=== PATIENT | female | born 1935 | race Caucasian/White ===

== ENCOUNTER 2017-02-06 15:19 | Observation (INO) | payer MEDICARE, OTHER ==
[2017-02-06] MEDS ORDERED: MORPHINE SULFATE 2 MG/ML DISP.SYRIN IV ONE (15:45)
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
[2017-02-06] MEDS ORDERED: MORPHINE SULFATE 2 MG/ML DISP.SYRIN ONE (15:48)
[2017-02-06] MEDS ORDERED: ACETAMINOPHEN 500 MG TABLET PO PRN (18:04)
[2017-02-06] MEDS ORDERED: ONDANSETRON HCL/PF 2 MG/ML VIAL IV PRN (18:04)
[2017-02-06] MEDS ORDERED: MORPHINE SULFATE 2 MG/ML DISP.SYRIN IV PRN (19:09)
[2017-02-06] MEDS ORDERED: ACETAMINOPHEN 325 MG TABLET PO PRN (19:15)
[2017-02-06] MEDS: oxyCODONE HCL/ACETAMINOPHEN 1 TAB TABLET PO PRN (19:16)
[2017-02-06 20:49] LABS: Hematocrit 34.1 % (37.0-47.0); Hemoglobin 11.4 gm/dL (12.5-16.0); Mean Cell Volume 90.9 fl (78-100); Mean Corpuscular Hemoglobin 30.4 pg (27-31); Mean Corpuscular Hgb Conc 33.4 g/dl (32-36); Mean Platelet Volume 10.4 fl (6.0-9.5); Neutrophil # 7.9 K/mm3 (1.3-6.0); Neutrophil % 82.3 % (42-75.0); Platelet Count 174 K/mm3 (150-450); Red Blood Count 3.75 M/mm3 (4.2-5.4); Red Cell Distribution Width 11.9 % (11.5-14.0); White Blood Count 9.6 K/mm3 (4.0-10.5)
[2017-02-06 21:07] LABS: Anion Gap 11.8 mmol/L (6.8-13.8); BUN/Creatinine Ratio 20.7 (9.0-21.6); Blood Urea Nitrogen 19 mg/dL (3-23); Calcium * 9.1 mg/dL (7.9-10.9); Carbon Dioxide 27.1 mmol/L (24-32.6); Chloride 106 mmol/L (97-106); Estimated Creat Clear 33.9; Glucose * 161 mg/dL (70-110); Potassium 3.9 mmol/L (3.4-4.6); Sodium 141 mmol/L (132-142); Troponin I Less than 0.017 ng/ml (0.00-0.10)
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
[2017-02-06] MEDS: NORMAL SALINE 1,000 ML IV PRN (22:52)
[2017-02-06 23:02] LABS: Urine Bilirubin Negative (NEGATIVE); Urine Ketone Negative (NEGATIVE); Urine Nitrite Negative (NEGATIVE); Urine Protein Negative (NEGATIVE); Urine Specific Gravity 1.015 SP.GR. (1.005-1.010); Urine Urobilinogen Normal (NORMAL)
[2017-02-06 23:10] LABS: Urine Amorphous Sediment Moderate - 2+ (NONE-FEW); Urine Appearance Cloudy; Urine Bacteria 1+; Urine Blood 5 /ul (NEGATIVE); Urine Color Yellow; Urine RBC TRACE /hpf (0-5); Urine WBC None Seen /hpf (0-5)
[2017-02-07] MEDS: oxyCODONE HCL/ACETAMINOPHEN 1 TAB TABLET PO PRN ×3 (02:17→11:04)
[2017-02-07 09:01] LABS: Hemoglobin 9.9 gm/dL (12.5-16.0); Mean Cell Volume 91.2 fl (78-100); Mean Corpuscular Hemoglobin 30.1 pg (27-31); Mean Platelet Volume 10.1 fl (6.0-9.5); Neutrophil # 5.7 K/mm3 (1.3-6.0); Neutrophil % 73.8 % (42-75.0); Platelet Count 146 K/mm3 (150-450); Red Blood Count 3.29 M/mm3 (4.2-5.4); White Blood Count 7.7 K/mm3 (4.0-10.5)
[2017-02-07] MEDS: NORMAL SALINE 1,000 ML IV PRN (09:39)
--- NOTE | 2017-02-07 11:55 | DS ---
(1) Spinous process fracture Diagnosis(s): C7 Problem: Acute (2) Proximal humerus fracture Problem: Acute Qualifiers: Encounter type: initial encounter Fracture type: closed Fracture morphology: other fracture Fracture alignment: displaced Laterality: left Qualified Code(s): S42.292A - Other displaced fracture of upper end of left humerus, initial encounter for closed fracture (3) Pubic ramus fracture Problem: Acute Qualifiers: Encounter type: initial encounter Fracture type: closed Laterality: right Qualified Code(s): S32.591A - Other specified fracture of right pubis, initial encounter for closed fracture (4) Dementia Problem: Chronic Qualifiers: Dementia type: Alzheimer's disease Alzheimer's disease onset: unspecified onset Dementia behavioral disturbance: without behavioral disturbance Qualified Code(s): G30.9 - Alzheimer's disease, unspecified; F02.80 - Dementia in other diseases classified elsewhere without behavioral disturbance Description of Stay: Stable. Seen by PT and ortho. Ortho recommends only sling for left arm. PT recommends only help by . Procedures Performed: none Discharge Disposition: Home self care Disposition: Home self-care Condition: Stable Discharge Activity: Activity as tolerated Discharge Diet: General/regular food Problem Oriented Discharge Instructions to Patient/Family: Fall Prevention in the Home, [id number], Humerus Fracture With Rehab-SportsMed, Simple Pelvic Fracture, Adult Additional Patient Instructions (free text): Ortho 2 weeks Home health referral with PT Prescriptions (Any new or edited meds): Acetaminophen [Tylenol] 650 mg PO QID PRN #1 tablet PRN Reason: Mild Pain Complete Home Medications List: Complete Home Medication List: Aspirin 81 mg PO DAILY 01/04/16 Nitroglycerin [Nitrostat] 0.4 mg SL Q5MIN PRN #50 tab 01/04/16 Acetaminophen [Tylenol] 650 mg PO QID PRN #1 tablet 02/07/17
[2017-02-07 11:56] VITALS: BP 112/50
== END 2017-02-07 15:00 | disposition home health service (06) ==
LOC: ER 15:19 → MS 17:49
PROVIDERS: ADMIT Allergy & Immunology; ATTEND Allergy & Immunology
PROC: 0JQ10ZZ Repair Face Subcutaneous Tissue and Fascia, Open Approach (ICD-10-PCS; principal; 2017-02-06)
DX: S42.212A Unspecified displaced fracture of surgical neck of left humerus, initial encounter for closed fracture (principal); S32.591A Other specified fracture of right pubis, initial encounter for closed fracture; S12.601A Unspecified nondisplaced fracture of seventh cervical vertebra, initial encounter for closed fracture; S01.511A Laceration without foreign body of lip, initial encounter; W01.0XXA Fall on same level from slipping, tripping and stumbling without subsequent striking against object, initial encounter; Z91.81 History of falling; S00.83XA Contusion of other part of head, initial encounter; G30.9 Alzheimer's disease, unspecified; F02.80 Dementia in other diseases classified elsewhere, unspecified severity, without behavioral disturbance, psychotic disturbance, mood disturbance, and anxiety; I10 Essential (primary) hypertension; E78.5 Hyperlipidemia, unspecified; G89.11 Acute pain due to trauma
CPT/HCPCS: 12011; 36415; 70450; 70486; 71010; 72125; 73030; 73060; 73502; 80048; 81001; 84484; 85025; 87086; 93005; 96374; 96376; 97162; 97165; 99284; G0378; G8978; G8979; G8980; G8987; G8988; G8989